=== PATIENT | male | born 2005 | race African-American/Black ===

== ENCOUNTER 2025-10-04 07:47 | Emergency (ER) | payer SELFPAY ==
[~2025-10-04] VITALS: Ht 167.6 cm; Wt 76.7 kg
[~2025-10-04 07:47] MED LIST: AUGMENTIN 875 MG TAB PO SCH
[2025-10-04 07:51] VITALS: BP 132/75; TEMP 98.5; O2SAT 100
[2025-10-04] MEDS ORDERED: AMOX875T2 PO (09:01)
[2025-10-04] MEDS: AUGMENTIN 875 MG TAB PO ONE (09:17)
== END 2025-10-04 10:18 | disposition home or self-care (01) ==
LOC: M ED 07:47
DX: K04.7 Periapical abscess without sinus (principal); R22.0 Localized swelling, mass and lump, head; Z79.2 Long term (current) use of antibiotics